=== PATIENT | female | born 1990 | race Caucasian/White ===

== ENCOUNTER 2020-03-23 09:49 | Outpatient (REF) | payer OTHER, SELFPAY | END 2020-03-23 09:50 | disposition home or self-care (01) | LOC: HO.LAB 09:49 | PROVIDERS: Visit Provider Internal Medicine | DX: Z20.828 Contact with and (suspected) exposure to other viral communicable diseases (principal) | CPT/HCPCS: C9803; U0003 ==

== ENCOUNTER 2022-04-03 09:50 | Emergency (ER) | payer OTHER, SELFPAY ==
[2022-04-03 09:54] VITALS: BP 124/87; PULSE 85; RESP 16; TEMP 36.4; O2SAT 100; BMI 33.8
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
== END 2022-04-03 10:29 | disposition home or self-care (01) ==
PROVIDERS: Emergency Provider Emergency Medicine Emergency Medical Services
DX: S46.912A Strain of unspecified muscle, fascia and tendon at shoulder and upper arm level, left arm, initial encounter (principal); S16.1XXA Strain of muscle, fascia and tendon at neck level, initial encounter; R51.9 Headache, unspecified; V43.52XA Car driver injured in collision with other type car in traffic accident, initial encounter; Y93.9 Activity, unspecified; Y92.410 Unspecified street and highway as the place of occurrence of the external cause; Y99.9 Unspecified external cause status
CPT/HCPCS: 99282

== ENCOUNTER 2023-04-04 13:55 | Day surgery (SDC) | payer OTHER, SELFPAY ==
[2023-04-04] VITALS (9 sets, daily range): BP systolic 105–120; BP diastolic 64–87; PULSE 58–100; RESP 13–20; TEMP 36.2–37; O2SAT 95–100; BMI 34.7
--- NOTE | ~2023-04-04 | US_ITS ---
EXAMINATION: US OBSTETRICAL ULTRASOUND CLINICAL INFORMATION: Swelling, cramping, 11 weeks COMPARISON: None available. LMP: Not provided. TECHNIQUE: Ultrasound of the maternal pelvis is performed using transabdominal and transvaginal transducers. Transvaginal imaging is performed due to inadequate visualization transabdominally. M-mode Doppler is also performed. FINDINGS: No intrauterine gestational sac identified. The endometrium is thickened and heterogeneous measuring 2.4 cm in thickness with internal vascularity. The endocervical canal is distended with avascular heterogeneous material measuring 1.6 cm in thickness, possibly reflective of clot. MATERNAL ADNEXA: The right maternal ovary measures 2.5 x 1.9 x 2.3 cm. The left maternal ovary measures 2.3 x 1.1 x 2.1 cm. There is no significant maternal adnexal mass. No maternal pelvic ascites. US/US OB pelvic and transvaginal IMPRESSION: * No intrauterine gestational sac or adnexal mass identified, compatible with a of unknown location however the endometrium is thickened, heterogeneous and hypervascular measuring 2.4 cm in thickness in the endocervical canal is distended with complex avascular material possibly suggesting blood clot therefore favoring interval miscarriage or miscarriage in process, with retained products of conception. Recommend correlation with continued beta hCG surveillance and follow-up ultrasound as warranted.
--- NOTE | 2023-04-04 14:08 | ED_ITS ---
HPI - General Adult General Chief complaint: Abdominal Pain Stated complaint: 11 wks preg-vaginal bleeding Time Seen by Provider: 04/04/23 16:09 Source: patient and family Mode of arrival: ambulatory History of Present Illness HPI narrative: 32-year-old female with no prior difficulties with her pregnancies presents with LMP in the part january and currently 11 weeks, patient states that she began having cramping yesterday and then started having bleeding today involving clots in the need to change her pad every hour. Related Data Home Medications Medication Instructions Recorded Confirmed vitamin with calcium 1 tab PO DAILY 04/05/23 04/05/23 no.72-iron 27 mg-folic acid 1 mg tablet (M- Plus) Previous Rx's Medication Instructions Recorded ibuprofen 600 mg tablet (IBU) 600 mg PO Q8H PRN fever or pain 04/03/22 #30 tabs Allergies Allergy/AdvReac Type Severity Reaction Status Date / Time No Known Allergies Allergy Verified 04/04/23 14:05 Review of Systems 2 Review of Systems: Pertinent positives and negatives as stated in HPI [facility] Past Medical History Source: nursing notes reviewed Medical History (Updated 04/04/23 @ 21:37 by Jaden Johnson MD) Obese No pertinent past medical history Physical Exam ED Vital Signs: Vital Signs - 24 hr 04/04/23 14:05 04/04/23 16:08 04/04/23 18:57 Temperature 98.0 F 98.5 F 98.6 F Pulse Rate 100 58 67 Respiratory Rate 18 18 18 Blood Pressure 116/82 105/64 109/66 Pulse Oximetry 100 95 95 Oxygen Delivery Method Room Air Room Air Room Air 04/04/23 20:52 04/04/23 22:30 04/04/23 22:35 Temperature 98.4 F 97.1 F 97.1 F Pulse Rate 88 83 78 Respiratory Rate 17 13 18 Blood Pressure 115/76 120/68 118/65 Pulse Oximetry 97 97 99 Oxygen Delivery Method Room Air Room Air Room Air 04/04/23 22:40 04/04/23 22:46 04/04/23 23:00 Temperature 97.1 F 97.1 F 97.2 F Pulse Rate 67 67 70 Respiratory Rate 19 20 18 Blood Pressure 116/87 117/76 119/74 Pulse Oximetry 96 100 100 Oxygen Delivery Method Room Air Room Air Room Air BMI result Body Mass Index 34.7 VITAL SIGNS: Reviewed. GENERAL: Well developed, well nourished, in no acute distress. HEAD: Normocephalic/atraumatic EYES: PERRLA, EOMI EARS: Ext canals without abnormality NOSE: Nares patent bilateral OROPHARYNX: no oral lesions noted, posterior pharynx clear NECK: Supple, no adenopathy LUNGS: Normal breath sounds. No adventitious sounds or accessory muscle use. SpO2<95> CARDIOVASCULAR: Regular rate and rhythm without noted murmurs ABDOMEN: Soft, non-tender, non-distended with bowel sounds. MUSCULOSKELETAL: No tenderness, deformities, or effusions noted on gross inspection. EXTREMITIES: No cyanosis, clubbing or edema. SKIN: Inspection of the skin reveals no rashes NEUROLOGIC: Alert and oriented x 4. Strength and sensation to light touch were grossly intact x 4. 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 Course Course Course Narrative: RME: 32 yold female presents to the ED For 11 weeks pregant with abdominal pain/cramping with vaginal spotting the past 3 days. labs and US ordered. Medications Administered Discontinued Medications Generic Name Dose Route Start Last Admin Trade Name Freq PRN Reason Stop Dose Admin Acetaminophen 975 mg 04/04/23 16:41 04/04/23 17:14 Acetaminophen 325 Mg Tablet PO 04/04/23 16:42 975 mg ONCE ONE Administration Doxycycline Monohydrate 200 mg 04/04/23 20:38 04/04/23 20:51 Doxycycline Monohydrate 100 Mg Capsule PO 04/04/23 20:39 200 mg ONCE ONE Administration Fentanyl 25 mcg 04/04/23 20:16 04/04/23 20:23 Fentanyl Citrate/Pf 100 Mcg/2 Ml Vial IVPUSH 04/04/23 20:17 25 mcg ONCE ONE Administration Protocol Ketorolac Tromethamine 15 mg 04/04/23 19:24 04/04/23 19:41 Ketorolac Tromethamine 30 Mg/Ml Vial IVPUSH 04/04/23 19:25 15 mg ONCE ONE Administration Ondansetron HCl 4 mg 04/04/23 14:58 04/04/23 15:19 Ondansetron Odt 4 Mg Tab.Rapdis TRANSLINGU 04/04/23 14:59 4 mg ONCE ONE Administration Medical Decision Making Medical Decision Making [facility] Narrative: 32-year-old female with history and clinical presentation, DDX: SAB, ectopic less likely, 1st term bleeding I reviewed all investigations and hematologic indices negative for anemia or thrombocytopenia and otherwise no leukocytosis or left shift. Coagulation studies are within normal limits. Chemistry indices do not reflect an AMANDA and there are no electrolyte or liver enzyme abnormalities. [id number]. Urinalysis is contaminated with blood and no evidence to suggest UTI. Patient is O positive, patient continues to receive medication for pain control. Ultrasound demonstrates- No intrauterine gestational sac or adnexal mass identified, compatible with a of unknown location however the endometrium is thickened, heterogeneous and hypervascular measuring 2.4 cm in thickness in the endocervical canal is distended with complex avascular material possibly suggesting blood clot therefore favoring interval miscarriage or miscarriage in process, with retained products of conception. Recommend correlation with continued beta hCG surveillance and follow-up ultrasound as warranted. 1927: I discussed case with Gynecology who wishes to know what the pelvic exam results are, so I performed a pelvic exam and findings consistent with vaginal bleeding as well as clots to include still present in the cervical os consistent with patient's history, ultrasound findings. 1955: Director Of Accounts Receivable is on his way to the hospital to evaluate the patient for himself. Repeat H&H remains stable and patient remains hemodynamically stable. 2034: Dr. Johnson will be taking the patient to surgery and she is otherwise transfer to surgery. Differential Diagnosis Differential Diagnoses: The differential diagnosis associated with the presentation includes Please see the discussion above Admission/Observation Consideration of admission/observation: Escalation of care including admission/observation considered Please see the discussion above Consult Healthcare Provider Management of the patient was discussed with: Director Of Accounts Receivable Please see the discussion above Lab Data [facility] Lab Attestation statement: I reviewed the patient's lab results. Please see the discussion above 04/04/23 19:38 04/04/23 14:23 Labs: Lab Results 04/04/23 04/04/23 04/04/23 Range/Units 14:23 16:26 19:38 WBC 4.5 L (4.8-10.8) X10*3/uL RBC 4.66 (4.20-5.50) X10*6/uL Hgb 13.1 13.2 (12.0-16.0) g/dl Hct 39.1 39.4 (37.0-47.0) % MCV 83.9 (80.0-98.0) fL MCH 28.1 (27.0-33.0) pg MCHC 33.5 (31.0-35.0) g/dl RDW 11.9 (11.0-16.0) % Plt Count 248 (160-400) X10*3/uL MPV 10.0 (9.4-12.3) fL Immature Gran % (Auto) 0.2 (0.0-0.4) % Neut % (Auto) 49.5 (45-73) % Lymph % (Auto) 40.2 H (20-40) % [place] % (Auto) 4.7 (2-11) % Eos % (Auto) 4.5 H (0-4) % Baso % (Auto) 0.9 (0-2) % Lymph # (Auto) 1.8 (1.2-4.9) X10*3/uL [place] # (Auto) 0.2 (0.1-1.2) X10*3/uL Eos # (Auto) 0.2 (0.0-0.4) X10*3/uL Baso # (Auto) 0.0 (0.0-0.2) X10*3/uL Abs Immat Gran (auto) 0.01 (0.00-0.03) X10*3/uL Absolute Neuts (auto) 2.2 (2.0-8.3) x10*3/uL Absolute Nucleated RBC 0.000 (0.0-0.012) X10*3/uL Nucleated RBC % (auto) 0.0 (0.0-0.2) /100WBC PT 12.9 (11.1-13.3) SEC INR 1.1 (0.9-1.1) APTT 30.8 (26.0-36.4) SEC Sodium 139 (135-145) mmol/L Potassium 3.5 (3.3-5.1) mmol/L Chloride 106 (96-108) mmol/L Carbon Dioxide 24 (22-29) mmol/L Anion Gap 13 (12-20) BUN 11 (9-16) mg/dL Creatinine 0.87 (0.5-1.4) mg/dL Estim Creat Clear Calc 114.1 Estimated GFR > 60 Random Glucose 109 (60-115) mg/dL Calcium 9.1 (8.4-10.2) mg/dL Total Bilirubin 0.4 (0.0-1.0) mg/dL AST 16 (5-31) U/L ALT 13 (0-31) U/L Alkaline Phosphatase 60 (39-117) U/L Total Protein 7.4 (6.5-8.0) g/dL Albumin 3.7 (3.5-5.0) g/dL Beta HCG, Quant 2795 mIU/mL Urine Color Red A Urine Appearance Turbid Urine pH 6.0 (5.0-9.0) Ur Specific [place] >= 1.030 H (1.005-1.025) Urine Protein 100 (2+) H (Neg-Trace) mg/dL Urine Glucose (UA) Negative (Negative) mg/dL Urine Ketones Negative (Negative) mg/dL Urine Blood Large (3+) H (Negative) Urine Nitrite Negative (Negative) Ur Leukocyte Esterase Small (1+) H (Negative) Urine RBC >20 H (0-2) /HPF Urine WBC 0-5 (0-5) /HPF Ur Squamous Epith Cells 6-10 (0-2) /HPF Urine Bacteria None Seen (None Seen) Hyaline Casts 0-2 (0-2) /LPF Urine Test POSITIVE H (NEGATIVE) Padmini species DNA (Negative) Chlam trachomat DNA PCR (Not Detect.) Gardnerella DNA Probe (Negative) N.gonorrhoeae DNA (PCR) (Not Detect.) Trichomonas DNA Probe (Negative) Blood Type O Positive 04/04/23 Range/Units 20:43 WBC (4.8-10.8) X10*3/uL RBC (4.20-5.50) X10*6/uL Hgb (12.0-16.0) g/dl Hct (37.0-47.0) % MCV (80.0-98.0) fL MCH (27.0-33.0) pg MCHC (31.0-35.0) g/dl RDW (11.0-16.0) % Plt Count (160-400) X10*3/uL MPV (9.4-12.3) fL Immature Gran % (Auto) (0.0-0.4) % Neut % (Auto) (45-73) % Lymph % (Auto) (20-40) % [place] % (Auto) (2-11) % Eos % (Auto) (0-4) % Baso % (Auto) (0-2) % Lymph # (Auto) (1.2-4.9) X10*3/uL [place] # (Auto) (0.1-1.2) X10*3/uL Eos # (Auto) (0.0-0.4) X10*3/uL Baso # (Auto) (0.0-0.2) X10*3/uL Abs Immat Gran (auto) (0.00-0.03) X10*3/uL Absolute Neuts (auto) (2.0-8.3) x10*3/uL Absolute Nucleated RBC (0.0-0.012) X10*3/uL Nucleated RBC % (auto) (0.0-0.2) /100WBC PT (11.1-13.3) SEC INR (0.9-1.1) APTT (26.0-36.4) SEC Sodium (135-145) mmol/L Potassium (3.3-5.1) mmol/L Chloride (96-108) mmol/L Carbon Dioxide (22-29) mmol/L Anion Gap (12-20) BUN (9-16) mg/dL Creatinine (0.5-1.4) mg/dL Estim Creat Clear Calc Estimated GFR Random Glucose (60-115) mg/dL Calcium (8.4-10.2) mg/dL Total Bilirubin (0.0-1.0) mg/dL AST (5-31) U/L ALT (0-31) U/L Alkaline Phosphatase (39-117) U/L Total Protein (6.5-8.0) g/dL Albumin (3.5-5.0) g/dL Beta HCG, Quant mIU/mL Urine Color Urine Appearance Urine pH (5.0-9.0) Ur Specific [place] (1.005-1.025) Urine Protein (Neg-Trace) mg/dL Urine Glucose (UA) (Negative) mg/dL Urine Ketones (Negative) mg/dL Urine Blood (Negative) Urine Nitrite (Negative) Ur Leukocyte Esterase (Negative) Urine RBC (0-2) /HPF Urine WBC (0-5) /HPF Ur Squamous Epith Cells (0-2) /HPF Urine Bacteria (None Seen) Hyaline Casts (0-2) /LPF Urine Test (NEGATIVE) Padmini species DNA Negative (Negative) Chlam trachomat DNA PCR NOT DETECTED (Not Detect.) [place]rella DNA Probe Negative (Negative) N.gonorrhoeae DNA (PCR) NOT DETECTED (Not Detect.) Trichomonas DNA Probe Negative (Negative) Blood Type Radiology Impression Discussion of test interpretation with radiology: I have reviewed the radiologist's reading. Radiologist Impression: Please see the discussion above External Record Review External record reviewed: Outpatient record, Prior outpatient labs and Prior outpatient radiology Critical Care Time Critical Care Time Critical Care Time: Yes Total Critical Care Time: 45 Attestation: I personally attest to this time spent taking care of the patient. Discharge Plan Discharge Clinical Impression: Retained products of conception after miscarriage Patient Disposition: Admitted As Inpatient Interventions: Admission Worksheet (ED) Last Done: 04/04/23 21:48 Discharge Date/Time: 04/04/23 21:48
[2023-04-04 14:31] LABS: MANUAL DIFF FLAG NO
[2023-04-04 14:32] LABS: Basophils Percent Auto 0.9 % (0-2); Eosinophils Absolute Auto 0.2 X10*3/uL (0.0-0.4); Eosinophils Percent Auto 4.5 % (0-4); Hematocrit 39.1 % (37.0-47.0); Hemoglobin 13.1 g/dl (12.0-16.0); Imm Gran Abs Auto 0.01 X10*3/uL (0.00-0.03); Imm Gran Pct Auto 0.2 % (0.0-0.4); Lymphocytes Absolute Auto 1.8 X10*3/uL (1.2-4.9); Lymphocytes Percent Auto 40.2 % (20-40); Mean Corpuscular HGB Conc 33.5 g/dl (31.0-35.0); Mean Corpuscular Hemoglobin 28.1 pg (27.0-33.0); Mean Corpuscular Volume 83.9 fL (80.0-98.0); Monocytes Absolute Auto 0.2 X10*3/uL (0.1-1.2); Monocytes Percent Auto 4.7 % (2-11); Neutrophils Absolute Auto 2.2 x10*3/uL (2.0-8.3); Neutrophils Percent Auto 49.5 % (45-73); Platelet Count 248 X10*3/uL (160-400); Red Blood Count 4.66 X10*6/uL (4.20-5.50); Red Cell Distribution Width 11.9 % (11.0-16.0); White Blood Count 4.5 X10*3/uL (4.8-10.8)
[2023-04-04 14:39] LABS: INTERNATIONAL NORM RATIO 1.1 (0.9-1.1); Prothrombin Time 12.9 SEC (11.1-13.3)
[2023-04-04 14:41] LABS: Partial Thromboplastin Time 30.8 SEC (26.0-36.4)
[2023-04-04 14:55] LABS: Alanine Aminotransferase 13 U/L (0-31); Albumin Level 3.7 g/dL (3.5-5.0); Alkaline Phosphatase 60 U/L (39-117); Anion Gap 13 (12-20); Aspartate Amino Transferase 16 U/L (5-31); Bilirubin Total 0.4 mg/dL (0.0-1.0); Blood Urea Nitrogen 11 mg/dL (9-16); Calcium 9.1 mg/dL (8.4-10.2); Carbon Dioxide 24 mmol/L (22-29); Chloride 106 mmol/L (96-108); Creatinine Clr Calc Pharmacy 114.1; Estimated Glomerular Filt Rate > 60; Glucose Random 109 mg/dL (60-115); HCG Quantitative 2795 mIU/mL; Potassium 3.5 mmol/L (3.3-5.1); Sodium 139 mmol/L (135-145); Total Protein 7.4 g/dL (6.5-8.0)
[2023-04-04] MEDS: Ondansetron ODT 4 MG TAB.RAPDIS TRANSLINGU (15:19)
--- NOTE | 2023-04-04 16:10 | PC.NURSE ---
patient a&ox3, vss, pt states she is approx 11 wks , pt states since 830 am she has bled through 6 pads, she states her pain comes in waves like contractions with 8/10 pain during the waves. This is the patients 3rd and she has a 10 y/o and 6 y/o. pt awaiting pelvic US.
[2023-04-04 16:33] LABS: UPreg QC Valid YES; Urine Pregnancy POSITIVE (NEGATIVE)
[2023-04-04 16:34] LABS: Appearance Urine Turbid; Color Urine Red; Glucose Urine UA Negative (Negative); Leukocyte Esterase Urine Small (1+) (Negative); Nitrite Urine Negative (Negative); Specific Gravity - Urine >= 1.030 (1.005-1.025); UMIC TRIGGER UACC YES; Urine Blood Large (3+) (Negative); Urine Ketones Negative (Negative); Urine Protein 100 (2+) mg/dL (Neg-Trace)
[2023-04-04 16:48] LABS: Bacteria Urine None Seen (None Seen); Hyaline Casts Urine 0-2 /LPF (0-2); RBC Urine >20 /HPF (0-2); UACC Culture Trigger YES; WBC Urine 0-5 /HPF (0-5)
[2023-04-04] MEDS: Acetaminophen 325 MG TABLET 975 MG PO (17:14)
--- NOTE | 2023-04-04 17:16 | PC.NURSE ---
pt medicated for 12/24 abd pain
--- NOTE | 2023-04-04 17:31 | PC.NURSE ---
pt to ultrasound
--- NOTE | 2023-04-04 19:40 | PM.GYNCN ---
CR[facility]ERAMIST - CN: HPI Data of Consult Consult date: 04/04/23 Primary Care Provider: Unknown Physician Consult Narrative Narrative: I was consulted on Mary Krueger who is a 32 year old female para 3 by LMP at 11 weeks of gestation presented to the emergency room with pelvic cramping since yesterday and heavy vaginal bleeding associated with passage of blood clots that started today. In the emergency room the following workup was done: H&H 13.1/39.1, repeated within 5 hours state the same, O positive, hCG 2795 cc:: CC: DESIGN SALES CONSULTANT - Review of Systems Review of Systems ROS Unobtainable: All systems reviewed & are unremarkable except as noted in HPI and below OB PMFSH Past Medical History Medical History (Updated 04/04/23 @ 21:37 by Jaden Johnson MD) Obese No pertinent past medical history Social History Social History Smoked in Last 30 Days: No Use of substances other than those prescribed or required for medical reasons: No Advance Directives: No Advance Directives Information Provided: No Patient : Yes Meds Allergies Allergy/AdvReac Type Severity Reaction Status Date / Time No Known Allergies Allergy Verified 04/04/23 14:05 [facility] Physical Exam Vitals Vital signs: Temp Pulse Resp BP Pulse Ox O2 Del Method 98.6 F 67 18 109/66 95 Room Air 04/04/23 18:57 04/04/23 18:57 04/04/23 18:57 04/04/23 18:57 04/04/23 18:57 04/04/23 18:57 BMI result Body Mass Index 34.7 Cardiovascular Auscultation: RRR Abdomen Auscultation/Inspection/Palpation: Normal bowel sounds, Soft and Non-distended Female Genitalia (Pelvic) Vulva: No lesions Cervix: Grossly normal Uterus: Enlarged Adnexa/Parametria: Adnexal Tenderness: None, Adnexal Mass: None and Parametrial Tenderness: None Additional Comments: blood clot per vagina, active bleeding [facility] CER[facility]IST - Results Labs 04/04/23 19:38 04/04/23 14:23 Labs: Short CBC 04/04/23 Range/Units 14:23 WBC 4.5 L (4.8-10.8) X10*3/uL Hgb 13.1 (12.0-16.0) g/dl Hct 39.1 (37.0-47.0) % Plt Count 248 (160-400) X10*3/uL BMP 04/04/23 14:23 Sodium 139 Potassium 3.5 Chloride 106 Carbon Dioxide 24 BUN 11 Creatinine 0.87 Calcium 9.1 Liver Function 04/04/23 Range/Units 14:23 Total Bilirubin 0.4 (0.0-1.0) mg/dL AST 16 (5-31) U/L ALT 13 (0-31) U/L Alkaline Phosphatase 60 (39-117) U/L Albumin 3.7 (3.5-5.0) g/dL Urine 04/04/23 Range/Units 16:26 Urine Color Red A Urine Appearance Turbid Urine pH 6.0 (5.0-9.0) Ur Specific [place] >= 1.030 H (1.005-1.025) Urine Protein 100 (2+) H (Neg-Trace) mg/dL Urine Glucose (UA) Negative (Negative) mg/dL Urine Test POSITIVE H (NEGATIVE) Imaging US - abdomen: Radiologist's impression: ITS Impressions Pelvic/Transvag US 04/04/23 18:00 IMPRESSION: * No intrauterine gestational sac or adnexal mass identified, compatible with a of unknown location however the endometrium is thickened, heterogeneous and hypervascular measuring 2.4 cm in thickness in the endocervical canal is distended with complex avascular material possibly suggesting blood clot therefore favoring interval miscarriage or miscarriage in process, with retained products of conception. Recommend correlation with continued beta hCG surveillance and follow-up ultrasound as warranted. Assessment and Plan (1) Incomplete : Status: Acute GC and chlamydia, trich and BV panel taken. Discussed with the patient the result of ultrasound suggesting missed . Discussed with the patient the options of the treatment discussed with the patient including medical treatment , suction D&C, all pros, cons, risks and benefits were discussed with the patient and the patient the decided to go ahead with Suction D&C. so a more detailed discussion about the procedure was carried on with the patient including the technique, risks including but not limited to : bleeding, infection, uterine perforation, injury to blood vessels, bowels, ureters, bladder, possible need for blood transfusion with all its risks ( HIV, Hep b or C, anaphylaxis reactions), possible need for laparoscopy, laparotomy, or hysterectomy, possible , thromboembolic events, possibility of a negative impact on future fertility because of scar tissue development inside the uterus; alternatives of this option were discussed with the patient including but not limited to, medical termination of or doing nothing. The patient decided to go ahead with Suction D&C and signed the consent. All questions answered, the patient verbalized understanding and agreed with the plan. Doxycycline 200 mg p.o. preop given to the patient. Ultrasound notified. Type and screen sent. Instructions given the patient to schedule a 2 week postoperative appointment. This note was generated with a voice recognition program. Some errors may have been overlooked during the review of this note. Sometimes these errors may affect the content or meaning of a given sentence.
[2023-04-04] MEDS: Ketorolac Tromethamine 30 MG/ML VIAL 15 MG IVPUSH (19:41)
[2023-04-04 19:50] LABS: Hematocrit 39.4 % (37.0-47.0); Hemoglobin 13.2 g/dl (12.0-16.0)
[2023-04-04] MEDS: fentaNYL citrate/PF 100 MCG/2 ML VIAL 25 MCG IVPUSH (20:23)
[2023-04-04] MEDS: Doxycycline Monohydrate 100 MG CAPSULE 200 MG PO (20:51)
--- NOTE | 2023-04-04 21:30 | HO.ANESPROP2 ---
HPI - Anesthesia Eval Consult details Narrative: incomplete PMFSH Active Problems Active Problems: All Active Problems (Updated 04/04/23 @ 19:45 by Jaden Johnson MD) Missed (Acute) Past Medical History Medical History (Updated 04/04/23 @ 21:32 by Lamont Yeh MD) Obese No pertinent past medical history Family History Family history of problems with anesthesia: No Surgical History History of Problems with Anesthesia: No Social History Social History Smoked in Last 30 Days: No Use of substances other than those prescribed or required for medical reasons: No Advance Directives: No Advance Directives Information Provided: No Patient : Yes Meds Allergies Allergy/AdvReac Type Severity Reaction Status Date / Time No Known Allergies Allergy Verified 04/04/23 14:05 Exam Height,Weight and Vital Signs: Height 5 ft 7 in Weight 100.5 kg Last Vital Signs Temp 98.4 F 04/04/23 20:52 Pulse 88 04/04/23 20:52 Resp 17 04/04/23 20:52 BP 115/76 04/04/23 20:52 Pulse Ox 97 04/04/23 20:52 O2 Del Method Room Air 04/04/23 20:52 Pertinent Lab Results Pertinent Lab Results: Laboratory Tests 04/04/23 04/04/23 04/04/23 14:23 16:26 19:38 WBC 4.5 L RBC 4.66 Hgb 13.1 13.2 Hct 39.1 39.4 MCV 83.9 MCH 28.1 MCHC 33.5 RDW 11.9 Plt Count 248 MPV 10.0 Immature Gran % (Auto) 0.2 Neut % (Auto) 49.5 Lymph % (Auto) 40.2 H Ford % (Auto) 4.7 Eos % (Auto) 4.5 H Baso % (Auto) 0.9 Lymph # (Auto) 1.8 Ford # (Auto) 0.2 Eos # (Auto) 0.2 Baso # (Auto) 0.0 Abs Immat Gran (auto) 0.01 Absolute Neuts (auto) 2.2 Absolute Nucleated RBC 0.000 Nucleated RBC % (auto) 0.0 PT 12.9 INR 1.1 APTT 30.8 Sodium 139 Potassium 3.5 Chloride 106 Carbon Dioxide 24 Anion Gap 13 BUN 11 Creatinine 0.87 Estim Creat Clear Calc 114.1 Estimated GFR > 60 Random Glucose 109 Calcium 9.1 Total Bilirubin 0.4 AST 16 ALT 13 Alkaline Phosphatase 60 Total Protein 7.4 Albumin 3.7 Beta HCG, Quant 2795 Urine Color Red A Urine Appearance Turbid Urine pH 6.0 Ur Specific [place] >= 1.030 H Urine Protein 100 (2+) H Urine Glucose (UA) Negative Urine Ketones Negative Urine Blood Large (3+) H Urine Nitrite Negative Ur Leukocyte Esterase Small (1+) H Urine RBC >20 H Urine WBC 0-5 Ur Squamous Epith Cells 6-10 Urine Bacteria None Seen Hyaline Casts 0-2 Urine Test POSITIVE H Blood Type O Positive Airway Mallampati Class: I TM Dist: >3cm Neck ROM: Full Loose/Missing/Broken Teeth: No Heart: RRR Lungs: CTA Assessment and Plan Assessment Anesthesia Assessment: Anesthesia Plan Discussed and Chart Reviewed Final Anesthetic Review Family History of Problems with Anesthesia: No History of Problems with Anesthesia: No NPO: Yes ASA Class: II and Emergency Final Preanesthetic Review: No Changes in Pt Med Stat, Meds/Allgs Chart Reviewed, Consent Obtained/Reviewed and Anes Risks/Benef Reviewed Patient Risk: Intermediate Procedure Risk: Low Assessment/Block/Sedation in SS: Assess/Block/Sedation-SS Anesthetic Plan Anesthetic Plan: GA Disposition: Standard PACU
--- NOTE | 2023-04-04 22:17 | PM.OP ---
Brief Operative Note Date of Service: 04/04/23 Pre-op diagnosis: Incomplete Post-op diagnosis: same Procedure: Suction D&C Surgeon: Jaden Johnson MD Anesthesia: MAC Was an Talent Development Consultant used for this Procedure?: No Estimated blood loss (mL): 100 Pathology: other (Products of conception) Condition: stable Disposition: PACU
--- NOTE | 2023-04-04 22:18 | W.PM.OPN ---
Operative Note Operative Note Date of Service: 04/04/23 Narrative: Preop diagnosis: Incomplete Operation: suction D and C Postop diagnosis: The same EBL: 100 CC Anesthesia: GLMA Languages And Literature Instructor: None Pathology: Products of conception Procedure: The patient was put in a dorsal distal mid position was scrubbed and draped in the usual sterile fashion. A sterile speculum was inserted inside the patient's vagina the anterior lip of the cervix was grasped with single-tooth tenaculum the cervix was dilated up to 7 mm. Under ultrasonographic guidance flexible 7. Suction tip was introduced inside the patient ran cavity till the fundus was hit then turning the suction 360 degrees around products of conception was sucked out toward the uterine cavity. The suction tip was taken out of the patient uterine cavity sharp curettings was followed in 4 quadrants of the uterus till a gritty feeling was felt. The suction tip was reintroduced under ultrasonographic guidance and intrauterine blood was sucked. The suction tip was taken out. Single-tooth tenaculum was removed hemostasis assured using pressure. The patient tolerated the procedure well and was transferred to the PACU in a stable condition.
--- NOTE | 2023-04-04 23:06 | PC.NURSE ---
pt verbalized understanding of d/c called ls clear scant amount drainage denied pain denies n/v rn helping patient getting dressed denies dizziness
[2023-04-05 05:05] LABS: CT PCR NOT DETECTED (Not Detect.); NG PCR NOT DETECTED (Not Detect.)
--- NOTE | 2023-04-05 06:38 | PHA.MEDREC ---
Pharmacy Consult ? Medication Reconciliation Pharmacy has completed the medication reconciliation.claim history used to complete med rec
[2023-04-05 09:25] LABS: BV Int Neg Control Negative (Negative); BV Int Pos Control Positive (Positive)
== END 2023-04-04 20:39 | disposition home or self-care (01) ==
LOC: HO.ED 20:36 → HO.SSS 20:40
PROVIDERS: Physician Assistant; Emergency Provider Student in an Organized Health Care Education/Training Program; Visit Provider Obstetrics & Gynecology
PROC: (CPT 59812; principal; 2023-04-04 21:30)
DX: O03.4 Incomplete spontaneous abortion without complication (principal); Z3A.11 11 weeks gestation of pregnancy
CPT/HCPCS: 59812; 0353U; 36415; 76801; 76817; 76998; 80053; 81001; 81025; 84702; 85014; 85018; 85025; 85610; 85730; 86900; 86901; 87086; 87480; 87510; 87660; 88305; 96374; 96375; 99285; J1885; J2405; J2704; J3010

== ENCOUNTER → 2023-04-04 20:39 | Outpatient (BNV) | payer OTHER, SELFPAY | PROVIDERS: Emergency Provider Student in an Organized Health Care Education/Training Program; Visit Provider Obstetrics & Gynecology | DX: O03.4 Incomplete spontaneous abortion without complication (principal) | CPT/HCPCS: 59812; 99283 ==

== ENCOUNTER 2023-04-20 10:27 | Outpatient (AMB) | payer OTHER, SELFPAY ==
[2023-04-20 10:36] VITALS: BP 116/68; BMI 34.6
--- NOTE | 2023-04-20 10:36 | MHC.OFFVIS ---
Intake Vital Signs 04/20/23 10:36 Height 5 ft 7 in Weight 221 lb BMI 34.6 BP 116/68 Intake Visit Reasons: post op Ase Master Mechanic Required: No Allergies No Known Allergies Allergy (Verified 04/20/23 10:37) Is last menstrual period known: No Post menopausal: No HPI HPI Comments History of Present Illness Details Presenting 2 weeks post up from suction D&C for incomplete , doing well with no complaints, minimal vaginal bleeding and pelvic cramping. The pathology showed the following: Products of conception, curettage: -Fragments of decidua and few chorionic villi with rare nucleated red blood cells. -Small fragment of tissue with trophoblastic cells within basalis and myometrium, consistent with placental implantation site. -Abundant blood clot, benign endometrium with hypersecretory glands, and benign endocervical glandular and squamous mucosa PFSH Medical History (Updated 04/20/23 @ 10:42 by Jaden Johnson MD) Obese No pertinent past medical history Surgical History (Updated 04/20/23 @ 10:39 by JAMAR Irby) Hx of dilation and curettage Female Reproductive History Menstrual control method: none Review of Systems Const All systems reviewed & are unremarkable except as noted in HPI and below Reports as per HPI and Reports no additional complaints GI Reports no additional complaints Reports no additional complaints Physical Exam Vital Signs: Last Vital Signs BP 116/68 04/20/23 10:36 BMI result Body Mass Index 34.6 Assessment & Plan Assessment & Plan (1) Incomplete : Comment: 2 week postop Status post suction D&C Code(s): O03.4 - Incomplete spontaneous without complication Plan: HCG ordered, if not 0 will repeat hCG and will follow it down to non levels. Discussed with the patient the results the pathology. Discussed with the patient different options of control including control pills, patch, ring, levo norgestrel and copper IUD, Depo-Provera, Nexplanon and others, the patient is not interested at this point pre All questions answered, the patient verbalized understanding Orders: Orders HCG Quantitative Today O03.4 - Incomplete spontaneous without complication Coding Level of Care Code Est Pt Level 3 (68832) Diagnoses Incomplete O03.4
== END 2023-04-20 10:46 | disposition home or self-care (01) ==
LOC: HO.HWS 10:27
PROVIDERS: Visit Provider Obstetrics & Gynecology
DX: O03.4 Incomplete spontaneous abortion without complication (principal)
CPT/HCPCS: 99024

== ENCOUNTER → 2023-04-20 10:27 | Outpatient (BNVA) | payer OTHER, SELFPAY | PROVIDERS: Visit Provider Obstetrics & Gynecology | DX: O03.4 Incomplete spontaneous abortion without complication (principal) | CPT/HCPCS: 99212 ==